=== PATIENT | male | born 1975 | race African-American/Black ===

== ENCOUNTER 2018-02-23 22:56 | Emergency (ER) | payer SELFPAY ==
[2018-02-24] MEDS ORDERED: IBUPROFEN 800 MG TABLET PO ONE (01:54)
--- NOTE | 2018-02-24 01:57 | ER Document Report ---
ED Medical Screen (RME) - General Chief Complaint: Headache Stated Complaint: HEADACHE Time Seen by Provider: 02/24/18 01:54 Information source: Patient Notes: Patient is a 43-year-old male presenting to the emergency department c/o headache and fever. Patient states he has had a headache and fever for the last 3 days. Stating fever is subjective. Patient also states he was treated for a urinary tract infection within the last 7 days, has missed multiple doses , and has not finished the medication. Patient is unsure of the name of antibiotic. Patient states he was given ABX from his family practice provider. - Related Data Allergies/Adverse Reactions: No Known Allergies Allergy (Unverified 02/23/18 23:08) Past Medical History Renal/ Medical History: Denies: Hx Peritoneal Dialysis Physical Exam - Vital signs Vitals: Temp Pulse Resp BP Pulse Ox 99.1 F 92 18 143/97 H 98 02/23/18 23:06 02/23/18 23:06 02/23/18 23:06 02/23/18 23:06 02/23/18 23:06 - Abdominal Inspection: Normal Distension: No distension Bowel sounds: Normal Tenderness: Nontender - Back Back: No: CVA tenderness - Neurological Cognition: Normal Orientation: AAOx4 Babs Coma Scale Verbal: Oriented Babs Coma Scale Motor: Obeys Commands Speech: Normal Course - Vital Signs Vital signs: Temp Pulse Resp BP Pulse Ox 100.4 F 92 18 143/97 H 98 02/24/18 01:13 02/23/18 23:06 02/23/18 23:06 02/23/18 23:06 02/23/18 23:06
[2018-02-24] MEDS ORDERED: NORMAL SALINE 1000 ML 1,000 ML IV ONE (01:59)
[2018-02-24 02:20] LABS: APPEARANCE,URINE SLIGHTLY-CLOUDY; BILIRUBIN,URINE NEGATIVE (NEGATIVE); COLOR,URINE DARK YELLOW; GLUCOSE, URINE NEGATIVE (NEGATIVE); KETONES,URINE NEGATIVE (NEGATIVE); LEUKOCYTE ESTERASE,URINE SMALL (NEGATIVE); NITRITE,URINE NEGATIVE (NEGATIVE); PROTEIN,URINE 30 mg/dL (NEGATIVE); URINE SPECIFIC GRAVITY 1.027
[2018-02-24 02:37] LABS: ABSOLUTE LYMPHOCYTES (AUTO) 1.9 10^3/uL (0.5-4.7); ABSOLUTE MONOCYTES (AUTO) 0.6 10^3/uL (0.1-1.4); ABSOLUTE NEUT (AUTO) 5.1 10^3/uL (1.7-8.2); BASOPHILS % (AUTO) 0.6 % (0-2); EOSINOPHILS % (AUTO) 0.2 % (0-6); HEMATOCRIT 41.7 % (37.9-51.0); HEMOGLOBIN 14.2 g/dL (13.5-17.0); LYMPHOCYTES % (AUTO) 24.5 % (13-45); MEAN CORPUSCULAR HEMOGLOBIN 30.9 pg (27.0-33.4); MEAN CORPUSCULAR VOLUME 91 fl (80-97); MONOCYTES % (AUTO) 7.8 % (3-13); PLATELET COUNT 152 10^3/uL (150-450); RED BLOOD COUNT 4.59 10^6/uL (4.35-5.55); RED CELL DISTRIBUTION WIDTH 13.7 % (11.5-14.0); SEGMENTED NEUTROPHILS % (AUTO) 66.9 % (42-78); TOTAL CELLS COUNTED % (AUTO) 100 %; WHITE BLOOD COUNT 7.6 10^3/uL (4.0-10.5)
[2018-02-24 02:43] LABS: ALANINE AMINOTRANSFERASE 42 U/L (21-72); ALBUMIN 4.2 g/dL (3.5-5.0); ALKALINE PHOSPHATASE 64 U/L (38-126); ANION GAP 12 (5-19); ASPARTATE AMINO TRANSFERASE 55 U/L (17-59); BILIRUBIN,DIRECT 0.3 mg/dL (0.0-0.4); BILIRUBIN,TOTAL 0.7 mg/dL (0.2-1.3); BLOOD UREA NITROGEN 10 mg/dL (7-20); CALCIUM 9.1 mg/dL (8.4-10.2); CARBON DIOXIDE 24 mmol/L (22-30); CHLORIDE 104 mmol/L (98-107); GLUCOSE 100 mg/dL (75-110); POTASSIUM 4.2 mmol/L (3.6-5.0); TOTAL PROTEIN 7.5 g/dL (6.3-8.2)
[2018-02-24] MEDS ORDERED: HYDROCODONE/ACETAMINOPHEN 5-325 MG (6 TAB/ER DISP) PO PRN (03:30)
[2018-02-24] MEDS ORDERED: DOXYCYCLINE HYCLATE 100 MG TABLET PO ONE ×2 (03:30→03:33)
--- NOTE | 2018-02-24 03:37 | ER Document Report ---
ED Headache - General Chief Complaint: Headache Stated Complaint: HEADACHE Time Seen by Provider: 02/24/18 01:54 Notes: Patient is a 43-year-old male that comes to the emergency department for chief complaint of a headache for 2 going on 3 days now. He also states he has been running fevers. He states that even when he cheats the fever he still has the headache. He denies neck stiffness, sore throat, congestion, cough, abdominal pain, rash. He states he was seen by urgent care yesterday and they told him he had a urinary tract infection and placed him on Flagyl. He states this did not change his symptoms. He denies any discharge, dysuria, abdominal pain, history of urinary tract infections, or any concern for STD. He is circumcised. He takes no daily medications. Denies any surgeries. He does not recall a tick bite but he has been outside and he does have pets. - Related Data Allergies/Adverse Reactions: No Known Allergies Allergy (Unverified 02/23/18 23:08) Past Medical History - General Information source: Patient - Social History Smoking Status: Current Every Day Smoker Frequency of alcohol use: None Drug Abuse: None Lives with: Family Family History: Reviewed & Not Pertinent Patient has suicidal ideation: No Patient has homicidal ideation: No - Medical History Medical History: Negative Renal/ Medical History: Denies: Hx Peritoneal Dialysis Surgical Hx: Negative - Immunizations Immunizations up to date: Yes Hx Diphtheria, Pertussis, Tetanus Vaccination: Yes Review of Systems - Review of Systems Constitutional: See HPI EENT: No symptoms reported Cardiovascular: No symptoms reported Respiratory: No symptoms reported Gastrointestinal: No symptoms reported Genitourinary: No symptoms reported Male Genitourinary: No symptoms reported Musculoskeletal: No symptoms reported Skin: No symptoms reported Hematologic/Lymphatic: No symptoms reported Neurological/Psychological: See HPI Physical Exam - Vital signs Vitals: Temp Pulse Resp BP Pulse Ox 99.1 F 92 18 143/97 H 98 02/23/18 23:06 02/23/18 23:06 02/23/18 23:06 02/23/18 23:06 02/23/18 23:06 - Notes Notes: GENERAL: Alert, interacts well. No acute distress. HEAD: Normocephalic, atraumatic. EYES: Pupils equal, round, and reactive to light. Extraocular movements intact. Mild photophobia with shining light in the eyes. ENT: Oral mucosa moist, tongue midline. Unremarkable oral pharyngeal exam. NECK: Full range of motion. Supple. Trachea midline. No nuchal rigidity. LUNGS: Clear to auscultation bilaterally, no wheezes, rales, or rhonchi. No respiratory distress. HEART: Regular rate and rhythm. No murmur ABDOMEN: Soft, non-tender. Non-distended. Bowel sounds present in all 4 quadrants. EXTREMITIES: Moves all 4 extremities spontaneously. No edema, normal radial and dorsalis pedis pulses bilaterally. No cyanosis. BACK: no cervical, thoracic, lumbar midline tenderness. No saddle anesthesia, normal distal neurovascular exam. NEUROLOGICAL: Alert and oriented x3. Normal speech. [cranial nerves II through XII grossly intact]. PSYCH: Normal affect, normal mood. SKIN: Warm, dry, normal turgor. No rashes or lesions noted. Course - Re-evaluation Re-evalutation: Patient with no nuchal rigidity. He does appear to have mild photophobia and he is complaining of headache despite being given 800 mg of ibuprofen and IV fluids. Very unremarkable physical exam. He does not have any nuchal rigidity. I discussed with patient the workup. CBC, chemistry unremarkable, urinalysis with a few white blood cells but otherwise unremarkable. Urine culture was placed. Advised he stop the Flagyl because this would not help either way. Very low suspicion of this patient having fever from a UTI based on his age, exam, workup, and history. I offered [place] spotted fever blood titers, I offered lumbar puncture to evaluate his headache and fever and told him that he could have meningitis. Patient declines both after discussion. Patient will be treated for suspected Brock spotted fever based on his symptoms. This is the third day of patient's headache and fever. Suspect viral meningitis without evidence of encephalitis versus [place] spotted fever. Patient is very agreeable to doxycycline treatment plan. He states he will take the antibiotics and he will return if he worsens. Significant other at bedside is very agreeable with this plan. - Vital Signs Vital signs: Temp Pulse Resp BP Pulse Ox 98.8 F 86 20 113/65 96 02/24/18 03:56 02/24/18 03:56 02/24/18 03:56 02/24/18 03:56 02/24/18 03:56 - Laboratory Result Diagrams: 02/24/18 02:05 02/24/18 02:05 Laboratory results interpreted by me: 02/24/18 01:55 Urine Protein 30 H Urine Blood SMALL H Urine Urobilinogen 2.0 H Ur Leukocyte Esterase SMALL H Discharge - Discharge Clinical Impression: Headache Qualifiers: Headache type: unspecified Headache chronicity pattern: unspecified pattern Intractability: intractable Qualified Code(s): R51 - Headache Fever Qualifiers: Fever type: unspecified Qualified Code(s): R50.9 - Fever, unspecified Condition: Stable Disposition: HOME, SELF-CARE Additional Instructions: Your symptoms and examination are concerning for suspected [place] Spotted Fever. Please take the doxycycline antibiotic as prescribed to completion. Rest, drink plenty fluids, take the medication provided this evening especially to help you sleep, otherwise take Tylenol or ibuprofen. Return if you worsen including worsening headache, vomiting, confusion, or any other concerning or worsening symptoms. Prescriptions: Doxycycline Hyclate 100 mg PO BID #20 capsule Forms: Return to Work Referrals: MEHDI REEDER PA-C [Primary Care Provider] - Follow up as needed
[2018-02-24 03:56] VITALS: BP 113/65
== END 2018-02-24 04:04 | disposition home or self-care (01) ==
LOC: ER 22:56
DX: R51 Headache (principal); R50.9 Fever, unspecified; F17.200 Nicotine dependence, unspecified, uncomplicated
CPT/HCPCS: 99284; 96360; 36415; 87086; 85025; 80053; 81001; J7030

== ENCOUNTER 2018-10-06 13:36 | Emergency (ER) | payer SELFPAY ==
[2018-10-06 13:52] VITALS: BP 144/87
--- NOTE | 2018-10-06 14:06 | RADIOLOGY REPORT (SQ) ---
EXAM DESCRIPTION: TIBIA FIBULA RIGHT COMPLETED DATE/TIME: 10/06/2018 1:58 pm REASON FOR STUDY: jumped off of roof COMPARISON: None. NUMBER OF VIEWS: Two views. TECHNIQUE: Two radiographic images acquired of the right tibia and fibula to include the knee and an kle in at least one projection. LIMITATIONS: None. FINDINGS: MINERALIZATION: Normal. BONES: No acute fracture or dislocation. No worrisome bone lesions. SOFT TISSUES: No obvious swelling or foreign body. OTHER: No other significant finding. IMPRESSION: NEGATIVE STUDY OF THE RIGHT TIBIA AND FIBULA. NO RADIOGRAPHIC EVIDENCE OF ACUTE INJURY. TECHNICAL DOCUMENTATION: JOB ID: [id number] [employer]- All Rights Reserved Reading location - IP/workstation name: [email or web address]
[2018-10-06] MEDS ORDERED: ACETAMINOPHEN 325 MG TABLET PO ONE (14:18)
[2018-10-06] MEDS ORDERED: IBUPROFEN 600 MG TABLET PO ONE (14:18)
--- NOTE | 2018-10-06 14:20 | ER Document Report ---
HPI - HPI Time Seen by Provider: 10/06/18 14:04 Pain Level: 5 Context: Patient is a 43-year-old male who presents the emergency department with a chief complaint of right leg pain. His pain is on the anterior medial portion of his lower leg. He states that about 4 to 5 days ago he jumped off the roof of a mobile home and landed on his feet, but continued to have right lower leg pain. He has been resting the area, icing it, but has had little relief. He has not seen a primary care provider in regards to this issue. He has not taken any ibuprofen or Tylenol today. Denies any past medical history other than asthma. He does not take any medications. - CONSTITUTIONAL Constitutional: DENIES: Fever - EENT EENT: DENIES: Sore Throat - NEURO Neurology: DENIES: Headache - RESPIRATORY Respiratory: DENIES: Coughing - GASTROINTESTINAL Gastrointestinal: REPORTS: Abdominal Pain - MUSCULOSKELETAL Musculoskeletal: REPORTS: Extremity pain - RLE - DERM Skin Color: Normal Skin Problems: None Past Medical History - Social History Smoking Status: Current Every Day Smoker Frequency of alcohol use: Occasional Drug Abuse: None Family History: Reviewed & Not Pertinent Patient has suicidal ideation: No Patient has homicidal ideation: No Pulmonary Medical History: Reports: Hx Asthma Renal/ Medical History: Denies: Hx Peritoneal Dialysis - Immunizations Immunizations up to date: Yes Hx Diphtheria, Pertussis, Tetanus Vaccination: Yes Vertical Provider Document - CONSTITUTIONAL Agree With Documented VS: Yes Exam Limitations: No Limitations General Appearance: No Apparent Distress - INFECTION CONTROL TRAVEL OUTSIDE OF THE [place] IN LAST 30 DAYS: No - HEENT HEENT: Atraumatic, Normocephalic - NECK Neck: Normal Inspection - RESPIRATORY Respiratory: No Respiratory Distress - CARDIOVASCULAR Cardiovascular: Regular Rate Pulses: Normal: Radial, Posterior tibial, Dorsalis pedis - MUSCULOSKELETAL/EXTREMETIES Musculoskeletal/Extremeties: FROM, Tender - Right lower third of lateral lower leg, Edema - Right lower third of lateral lower leg. negative: Eccymosis - NEURO Level of Consciousness: Awake, Alert, Appropriate Motor/Sensory: No Motor Deficit, No Sensory Deficit Deep Tendon Reflexes: 2+ - DERM Integumentary: Warm, Dry, No Rash Course - Re-evaluation Re-evalutation: 10/06/18 Patient's X-ray of his right tibia and fibula are negative for any acute fracture. patient has good dorsalis pedis and posterior tibial pulses. I suspect he strained the ligament in his right lateral leg. He will be provided an elian wrap and some crutches. I do not suspect any life threatening etiology at this time. He will follow up with his primary care provider. Motrin and Tylenol for pain relief. Verbal discharge instructions were given to the patient. They verbalized understanding. They are stable for discharge. - Vital Signs Vital signs: Temp Pulse Resp BP Pulse Ox 98.2 F 76 16 144/87 H 97 10/06/18 13:48 10/06/18 13:48 10/06/18 13:48 10/06/18 13:48 10/06/18 13:48 Procedures - Immobilization Right Leg Pre-Proc Neuro Vasc Exam: Normal Immobilizer type: Elian wrap, Crutches Performed by: PCT Post-Proc Neuro Vasc Exam: Normal, Unchanged from pre-exam Alignment checked and good: Yes Discharge - Discharge Clinical Impression: Right leg pain Condition: Stable Disposition: HOME, SELF-CARE Additional Instructions: Your x-ray does not show any acute fracture today. You likely have a ligamentous strain. You should continue to take anti-inflammatories such as ibuprofen 600 mg every 6 hours. You can also take Tylenol 1000 mg every 6 hours. Continue to apply ice to the area is much your able. You have been provided with crutches and Elian wrap. Please follow-up with your primary care physician if you do not have improving your symptoms in the next 1-2 weeks. Please return immediately if you develop weakness, numbness, spreading redness from the area, or any other symptoms that are concerning to you. Referrals: MEHDI REEDER PA-C [Primary Care Provider] - 10/19/18
== END 2018-10-06 14:37 | disposition home or self-care (01) ==
LOC: ER 13:36
DX: M79.661 Pain in right lower leg (principal); J45.909 Unspecified asthma, uncomplicated; F17.200 Nicotine dependence, unspecified, uncomplicated; R60.0 Localized edema
CPT/HCPCS: 99283

== ENCOUNTER 2019-07-10 19:42 | Emergency (ER) | payer SELFPAY ==
--- NOTE | 2019-07-10 19:59 | ER Document Report ---
ED Medical Screen (RME) - General Stated Complaint: LEFT ARM PAIN AND NUMBNESS Time Seen by Provider: 07/10/19 19:50 Primary Care Provider: MEHDI REEDER PA-C [Primary Care Provider] - Follow up as needed TRAVEL OUTSIDE OF THE [place] IN LAST 30 DAYS: No - HPI Notes: 07/10/19 19:58 Patient is a 44-year-old male who presents complaining of an occasional dry cough over the past couple days and left sided sternal chest pain that began this afternoon. That pain does not radiate, but he does have intermittent tingling and soreness into his left upper arm and into his hand. Patient states that he has had some intermittent numbness and tingling to the fingers for the past couple months. He will also wake up at night and feel like his hand is sleeping. No history of DVT, PE, CVA, CAD. No fever or shortness of breath. I have treated and performed a rapid initial assessment of this patient. A comprehensive ED assessment and evaluation of the patient, analysis of test results and completion of medical decision making process will be conducted by additional ED providers. PHYSICAL EXAMINATION: GENERAL: Well-appearing, well-nourished and in no acute distress. A&Ox4. Answers questions appropriately. Heart: RRR Lungs: CTAB Neck: Negative Spurling Left hand: + tinel at the wrist - Related Data Allergies/Adverse Reactions: No Known Allergies Allergy (Verified 07/10/19 19:50) Past Medical History Pulmonary Medical History: Reports: Hx Asthma Renal/ Medical History: Denies: Hx Peritoneal Dialysis - Immunizations Immunizations up to date: Yes Hx Diphtheria, Pertussis, Tetanus Vaccination: Yes Physical Exam - Vital signs Vitals: Temp Pulse Resp BP Pulse Ox 99 F 101 H 16 174/95 H 98 07/10/19 19:43 07/10/19 19:43 07/10/19 19:43 07/10/19 19:43 07/10/19 19:43 Course - Vital Signs Vital signs: Temp Pulse Resp BP Pulse Ox 99 F 101 H 16 174/95 H 98 07/10/19 19:43 07/10/19 19:43 07/10/19 19:43 07/10/19 19:43 07/10/19 19:43 Doctor's Discharge - Discharge Referrals: MEHDI REEDER PA-C [Primary Care Provider] - Follow up as needed
[2019-07-10 20:18] LABS: ABSOLUTE BASOPHILS # (AUTO) 0.1 10^3/uL (0.0-0.2); ABSOLUTE EOSINOPHILS # (AUTO) 0.2 10^3/uL (0.0-0.6); ABSOLUTE LYMPHOCYTES (AUTO) 2.6 10^3/uL (0.5-4.7); ABSOLUTE NEUT (AUTO) 5.7 10^3/uL (1.7-8.2); BASOPHILS % (AUTO) 0.5 % (0-2); EOSINOPHILS % (AUTO) 1.9 % (0-6); HEMATOCRIT 41.6 % (37.9-51.0); HEMOGLOBIN 14.1 g/dL (13.5-17.0); LYMPHOCYTES % (AUTO) 27.5 % (13-45); MEAN CORPUSCULAR HEMOGLOBIN 31.3 pg (27.0-33.4); MEAN CORPUSCULAR VOLUME 92 fl (80-97); MONOCYTES % (AUTO) 10.3 % (3-13); PLATELET COUNT 198 10^3/uL (150-450); RED BLOOD COUNT 4.51 10^6/uL (4.35-5.55); RED CELL DISTRIBUTION WIDTH 13.5 % (11.5-14.0); SEGMENTED NEUTROPHILS % (AUTO) 59.8 % (42-78); TOTAL CELLS COUNTED % (AUTO) 100 %; WHITE BLOOD COUNT 9.5 10^3/uL (4.0-10.5)
[2019-07-10 20:36] LABS: ALBUMIN 4.5 g/dL (3.5-5.0); ALKALINE PHOSPHATASE 78 U/L (38-126); ANION GAP 12 (5-19); ASPARTATE AMINO TRANSFERASE 36 U/L (17-59); BILIRUBIN,DIRECT 0.2 mg/dL (0.0-0.4); BILIRUBIN,TOTAL 0.5 mg/dL (0.2-1.3); BLOOD UREA NITROGEN 15 mg/dL (7-20); CALCIUM 9.5 mg/dL (8.4-10.2); CARBON DIOXIDE 25 mmol/L (22-30); CHLORIDE 104 mmol/L (98-107); GLUCOSE 106 mg/dL (75-110); POTASSIUM 3.9 mmol/L (3.6-5.0); TOTAL PROTEIN 8.1 g/dL (6.3-8.2)
--- NOTE | 2019-07-10 21:07 | RADIOLOGY REPORT (SQ) ---
EXAM DESCRIPTION: X-RAY CHEST TWO VIEWS CLINICAL HISTORY: 44 years, Male, Lt chest pain, cough COMPARISON: None. FINDINGS: PA and lateral chest radiographs were performed at 2009 hours on 07/10/2019. The lungs are well expanded and clear. There are pleural blebs in the apices. The costophrenic sulci are sharp. No pneumothorax. The cardiac silhouette, hilar regions, trachea, soft tissues and bony structures are unremarkable aside from slight anterior wedging of the T11 vertebral body. IMPRESSION: No acute cardiopulmonary disease.
[2019-07-10] MEDS ORDERED: IBUPROFEN 600 MG TABLET PO ONE (22:36)
--- NOTE | 2019-07-10 22:42 | ER Document Report ---
ED Extremity Problem, Upper - General Chief Complaint: Arm Pain Stated Complaint: LEFT ARM PAIN AND NUMBNESS Time Seen by Provider: 07/10/19 19:50 Primary Care Provider: MEHDI REEDER PA-C [Primary Care Provider] - Follow up as needed Mode of Arrival: Ambulatory Information source: Patient TRAVEL OUTSIDE OF THE [place] IN LAST 30 DAYS: No - HPI Notes: Patient complains of several months of left arm pain numbness with pins and n eedle sensation. He states he also has some left lateral chest wall pain and he states he feels like he has to shake his arm to get rid of the sensation. He states this is been happening intermittently for several months. He does not know of anything that makes it better or worse. It is moderate to severe. It does radiate down the left arm. He states he has had no significant anterior chest pain. No shortness of breath. No nausea or sweating. No known injuries to the chest or shoulder. - Related Data Allergies/Adverse Reactions: No Known Allergies Allergy (Verified 07/10/19 19:50) Past Medical History - General Information source: Patient - Social History Smoking Status: Current Every Day Smoker Frequency of alcohol use: None Drug Abuse: None Family History: Reviewed & Not Pertinent Patient has suicidal ideation: No Patient has homicidal ideation: No Pulmonary Medical History: Reports: Hx Asthma Renal/ Medical History: Denies: Hx Peritoneal Dialysis - Immunizations Immunizations up to date: Yes Hx Diphtheria, Pertussis, Tetanus Vaccination: Yes Review of Systems - Review of Systems Constitutional: denies: Chills, Fever Cardiovascular: denies: Chest pain, Palpitations Respiratory: denies: Cough, Short of breath Gastrointestinal: denies: Abdominal pain, Diarrhea -: Yes All other systems reviewed and negative Physical Exam - Vital signs Vitals: Temp Pulse Resp BP Pulse Ox 99 F 101 H 16 174/95 H 98 07/10/19 19:43 07/10/19 19:43 07/10/19 19:43 07/10/19 19:43 07/10/19 19:43 Interpretation: Hypertensive - General General appearance: Appears well, Alert - HEENT Head: Normocephalic, Atraumatic Eyes: Normal Pupils: PERRL - Respiratory Respiratory status: No respiratory distress Chest status: Nontender Breath sounds: Normal Chest palpation: Normal - Cardiovascular Rhythm: Regular Heart sounds: Normal auscultation Murmur: No - Abdominal Inspection: Normal Distension: No distension Bowel sounds: Normal Tenderness: Nontender Organomegaly: No organomegaly - Back Back: Normal, Nontender - Extremities General upper extremity: Normal inspection, Tender - Left shoulder is tender anteriorly to palpation., Normal color, Normal ROM, Normal temperature General lower extremity: Normal inspection, Nontender, Normal color, Normal ROM, Normal temperature, Normal weight bearing. No: Darci's sign - Neurological Neuro grossly intact: Yes Cognition: Normal Orientation: AAOx4 [place] Coma Scale Eye Opening: Spontaneous Babs Coma Scale Verbal: Oriented Babs Coma Scale Motor: Obeys Commands [place] Coma Scale Total: 15 Speech: Normal Motor strength normal: LUE - Patient has 5 out of 5 strength for flexion and extension of the elbow shoulder and wrist joint on the left. Patient has a 2+ radial pulse on the left. He has equal fruit buyer bilaterally. He has no limited range of motion of the left shoulder., RUE, LLE, RLE Sensory: Normal - Psychological Associated symptoms: Normal affect, Normal mood - Skin Skin Temperature: Warm Skin Moisture: Dry Skin Color: Normal Course - Vital Signs Vital signs: Temp Pulse Resp BP Pulse Ox 99 F 101 H 16 174/95 H 98 07/10/19 19:43 07/10/19 19:43 07/10/19 19:43 07/10/19 19:43 07/10/19 19:43 - Laboratory Result Diagrams: 07/10/19 20:07 07/10/19 20:07 - Diagnostic Test Radiology reviewed: Image reviewed, Reports reviewed - EKG Interpretation by Me EKG shows normal: Sinus rhythm Rate: Normal - 98 Rhythm: NSR Clyde/QRS: No: Right axis deviation, Left axis deviation Discharge - Discharge Clinical Impression: Radicular pain in left arm Condition: Stable Disposition: HOME, SELF-CARE Instructions: Radiculopathy ([facility]) Additional Instructions: Please follow-up with your primary care physician as soon as possible Your blood pressure is significantly elevated. Please take the medication I have prescribed as instructed. Please follow-up with one 1 week with your primary care physician to have your blood pressure rechecked. Prescriptions: Amlodipine Besylate [Norvasc 5 mg Tablet] 5 mg PO DAILY #30 tablet Forms: Elevated Blood Pressure, Return to Work Referrals: MEHDI REEDER PA-C [Primary Care Provider] - Follow up in 3-5 days
[2019-07-10 23:12] VITALS: BP 169/98
--- NOTE | 2019-07-11 07:37 | EKG REPORT ---
SEVERITY:- NORMAL ECG - SINUS RHYTHM : Confirmed by: Salvador Clark MD 11-Jul-2019 07:37:11
== END 2019-07-10 23:05 | disposition home or self-care (01) ==
LOC: ER 19:42
DX: M54.12 Radiculopathy, cervical region (principal); R20.0 Anesthesia of skin; R07.89 Other chest pain; F17.200 Nicotine dependence, unspecified, uncomplicated; J45.909 Unspecified asthma, uncomplicated
CPT/HCPCS: 36415; 71046; 80053; 84484; 85025; 93005; 93010; 99285